=== PATIENT | male | born 1940 | race Caucasian/White ===

== ENCOUNTER 2016-06-20 09:51 | Emergency (ER) | payer MEDICARE ==
[~2016-06-20] VITALS: Ht 180.3 cm; Wt 77.3 kg
--- NOTE | 2016-06-20 10:06 | ED.REPORT ---
HPI-Chest Pain 40 and Over Date of Service June 20, 2016 ED Provider: Renan Mahan DO 76 year old male anticoagulated on warfarin and history of NSTEMI with cardiac stent placement in 1999, lung removal due to cancer, CHF, COPD, paroxysmal atrial fibrillation, and HTN presents to the ER via EMS complaining of substernal chest pain onset just prior to arrival. Pain radiates into his back, and is exacerbated with deep breaths and palpation. Associated symptoms include generalized weakness, worsening chronic cough, shortness of breath, and palpitations. Rapid atrial fibrillation with RVR en route. 500cc fluid, diltiazem, ASA, and NTG administered by medics. History of similar in the past. Patient is a difficult historian. He is on 3L O2 at home. reports that the patient was hospitalized three weeks ago at [facility] in [place], [place], at which time he went into rapid atrial fibrillation and had a cardiac catheterization. Nursing Notes Stated Complaint: SHORTNESS OF BREATH,CHEST PAIN Nursing Notes Reviewed: Yes Allergies: Coded Allergies: No Known Allergies (Verified , 05/19/07) Scheduled Arformoterol Tartrate (Brovana) 15 Mcg/2 Ml Vial.neb 15 MCG IH BID Ascorbic Acid (Vitamin C) 1,000 Mg Tab.chew 1,000 MG PO BID Aspirin Chew (Aspirin Chew) 81 Mg Chew 81 MG PO DAILY Atorvastatin (Lipitor) 40 Mg Tablet 40 MG PO HS Budesonide (Pulmicort) 0.25 Mg/2 Ml Nebu 0.25 MG IH DAILY Cholecalciferol (Vitamin D3) (Vitamin D3) 1,000 Unit Tab.chew 2,000 UNIT PO DAILY Cinnamon Bark (Cinnamon) 500 Mg Capsule 500 MG PO DAILY Cyanocobalamin (Vitamin B12) 500 Mcg Tablet 1,000 MCG PO DAILY Folic Acid (Folic Acid) 1 Mg Tablet 1 MG PO DAILY Furosemide (Furosemide) 40 Mg Tablet 40 MG PO DAILY Guaifenesin (Mucinex) 600 Mg Tablet.er 600 MG PO BID Ipratropium/Albuterol Sulfate (Iprat-Albut 0.5-3(2.5) mg/3 mL Inhalant Soln) 3 Ml Ampul.neb 3 ML IH Q6 Lisinopril (Lisinopril) 10 Mg Tablet 10 MG PO DAILY Metformin (Metformin) 500 Mg Tablet 500 MG PO HS Metoprolol Tartrate (Metoprolol Tartrate) 25 Mg Tablet 12.5 MG PO BID Omeprazole (Omeprazole) 40 Mg Capsule.dr 40 MG PO DAILY Paroxetine (Paroxetine) 40 Mg Tablet 40 MG PO DAILY Potassium Chloride ER (Klor-Con M20) 20 Meq Tablet 20 MEQ PO DAILY Warfarin Sodium (Coumadin) 5 Mg Tablet 5 MG PO DAILY Scheduled PRN Acetaminophen (Acetaminophen) 325 Mg Tablet 325 MG PO Q6H PRN PRN For Pain Albuterol Neb Soln (Albuterol Neb Soln) 2.5 Mg/3 Ml Vial.neb 2.5 MG INHALATION Q4H PRN PRN For Wheezing Hydrocodone-Acetaminophen 5-325 mg (Hydrocodone-Acetaminophen 5-325 mg) 1 Each Tablet 1 TABLET PO Q6H PRN PRN For Pain Nitroglycerin SL (Nitroglycerin SL) 0.4 Mg Tab.subl 0.4 MG SL Q5MIN PRN PRN For Chest Pain Trazodone (Trazodone) 50 Mg Tablet 100 MG PO HS PRN PRN Insomnia General Time Seen by MD: 10:06 Chief Complaint Chest pain Hx Obtained From: Patient Arrived By: Ambulance Sudden in Onset?: No Onset Occurred: Just prior to arrival Symptom Duration: Since onset Location: : Substernal Quality: Painful Radiation: : Back Severity: Current: Moderate Severity: Maximum: Moderate Associated with: Reports: Cough, non-productive, Shortness of Breath, Weakness Exacerbated by: Deep breath, Palpation of chest Pertinent Negative: Relieved by nothing Context Related History: Reports: Congestive heart failure, Diabetes mellitus, Hypertension, Myocardial infarction Similar Sx Previous: Yes Past Medical History Past Medical History NSTEMI Anemia Reports: COPD, Cancer (Lung), Congestive heart failure, Coronary artery disease , Diabetes mellitus, Hypertension Reports: Atrial fibrillation (paroxysmal), Depression Past Surgical History Lobectomy Cardiac stent placement Reports: Appendectomy Smoking History Current Every Day Smoker Review of Systems Constitutional: Reports: Weakness - generalized Respiratory: Reports: Non-productive cough, Shortness of breath Cardiovascular: Reports: Chest pain, Palpitations GI: Denies: Nausea, Vomiting Musculoskeletal: Reports: Back pain, Denies: Extremity pain, Neck pain Skin: Denies Diaphoresis Neurologic: Denies: Headache Complete sys rev & neg: except as marked. Physical Exam Initial Vital Signs Vital Signs (First) Date Time Temp Pulse Resp B/P Pulse Ox O2 Delivery O2 Flow Rate FiO2 06/20/16 10:17 36.9 75 24 101/58 93 Nasal Cannula 3 Initial VS: Reviewed Head / Eyes: Atraumatic, Normocephalic Neck: Supple, Non-tender, Full range of motion Extremities: Vascular intact, Neuro intact, No swelling, No tenderness Skin: Warm, Dry, No cyanosis Neurologic: Alert, Oriented, Nonfocal General/Constitutional: Awake, Alert, Well developed Disheveled, smells of cigarettes. Respiratory / Chest: No rales, No rhonchi, No wheezing Diminished Breath Sounds: Positive: Decreased bilateral Cardiovascular: Heart rate NL, Regular rhythm, Heart sounds NL, Peripheral circulation NL, Pulses = bilaterally, No gross BP differential Heart Sounds / Murmur: Positive: Systolic murmur present.. (at apex) Abdomen: Soft, Non-tender, No guarding, No rebound, No distention Interpretation & Diagnostics Lab Results Interpretation Result Diagram: 06/20/16 1030 06/20/16 1030 Test 06/20/16 10:30 White Blood Count 6.5th/mm3 (3.8-10.1) Red Blood Count 3.53mil/mm3 (4.40-5.80) Hemoglobin 9.4g/dL (13.8-17.2) Hematocrit 29.8% (41.0-50.0) Mean Corpuscular Volume 84.4fL (81-100) Mean Corpuscular Hemoglobin 26.6pg (27.0-35.0) Mean Corpuscular Hemoglobin Concent 31.5% (32.0-37.0) Red Cell Distribution Width 17.1% (12.3-15.4) Platelet Count 405bil/L (150-400) Neutrophils (%) (Auto) 73.1% (40-74) Lymphocytes (%) (Auto) 6.3% (14-46) Monocytes (%) (Auto) 17.0% (4-12) Eosinophils (%) (Auto) 2.8% (0-5) Basophils (%) (Auto) 0.6% (0-3) Prothrombin Time 38.6sec (8.1-12.5) Prothromb Time International Ratio 3.52ratio Sodium Level 141mEq/L (134-144) Potassium Level 4.2mEq/L (3.5-5.2) Chloride Level 101mEq/L (97-108) Carbon Dioxide Level 23mmol/L (18-29) Blood Urea Nitrogen 28mg/dL (8-27) Creatinine 0.76mg/dL (0.76-1.27) Estimat Glomerular Filtration Rate 105mL/min (>59) Glucose Level 163mg/dL (60-99) Calcium Level 9.2mg/dL (8.5-10.1) Magnesium Level 1.7mg/dL (1.6-2.6) Total Bilirubin 0.2mg/dL (0.0-1.2) Aspartate Amino Transf (AST/SGOT) 15U/L (0-50) Alanine Aminotransferase (ALT/SGPT) 11U/L (0-44) Alkaline Phosphatase 63U/L (25-160) Troponin T 0.024ug/L (0.0-0.011) Pro-B-Type Natriuretic Peptide 1592pg/mL (0-486) Total Protein 6.9g/dL (6.4-8.4) Albumin 3.4g/dL (3.4-5.0) Hold Sanderson Top Tube Received (Received) ECG Interpretation ECG Interpretation: Sinus rhythm, rate 68 LBBB No ischemic changes Unchanged from 05/19/2007 Time: 10:27 Interpreted by: ED physician X-Ray Chest Interpretation Chest Xray Interpretation: IMPRESSION: 1. Reticulonodular interstitial prominence probably is related to pulmonary edema. Atypical pneumonia is difficult to exclude. 2. Trace bilateral effusions. 3. Postoperative changes overlying the left superior chest. No pneumothorax. Dictated by: Duarte Ambrose M.D. on 06/20/2016 at 9:41 Approved by: Duarte Ambrose M.D. on 06/20/2016 at 9:44 View: Portable, 1 view Interpretation / Wet Read by: Interpret - Radiologist Re-Eval/Medical Decision Med Decision/Clinical Course Patient arrives actually in sinus rhythm but prehospital EKG was reviewed and he was in rapid atrial fibrillation, which was resolved after Cardizem given IV by paramedics. Patient has been mildly hypotensive in the 90s and as low as the 80s in the ER. He has a prerenal pattern in his lab work. His troponin is also mildly elevated. Given the low blood pressure antecedent chest pain, the general constellation of weakness in the last few days, and the abnormal troponin and this patient should be admitted and observed with serial troponins, blood pressure monitoring and possibly repeat echocardiogram at the discretion of cardiology. When I offered this to the patient, he vigorously requested transfer to [facility] where his ongoing medical care and cardiac care occurs. He was graciously accepted by both cardiology and the hospitalist. He will be transferred. Source of Hx: Old records Time of Eval: 10:52 Re-Evaluation/Progress Note: Patient's symptoms are nearly resolved. Updated him on the plan of care. Time of Eval: 11:04 Re-Evaluation/Progress Note: Patient's is now present, at bedside. Updated her on the plan of care. Time of Eval: 11:44 Re-Evaluation/Progress Note: reports decreased appetite recently, but he has had adequate fluid intake. Time of Eval: 12:19 Re-Evaluation/Progress Note: Discussed lab and imaging results and need for admission. Patient is amenable to the plan, but requests admission at [facility] in [place], [place]. Return precautions given. All other questions addressed. Consultation #1: Referral / Consult Name: Chung Singer MD Consulted With: Cardiology Call Returned at: 12:19 Note: Discussed patient case with Dr. Singer, Cardiology at [facility] in [place], [place]. He will try to arrange transfer. Consultation #2: Referral / Consult Name: Catarino Yates MD Consulted With: Hospitalist ([facility]) Call Returned at: 12:40 Note: Does not accept transfer at this time. Consultation #3: Referral / Consult Name: Catarino Yates MD Consulted With: Hospitalist Call Returned at: 12:46 Research Laboratory Technician: Agrees with eval, Agrees with plan Note: Dr. Yates accepts transfer. Counseled Regarding: Diagnosis, Lab results, Need for transfer Discharge & Departure Primary Impression: Atrial fibrillation with RVR Additional Impressions: Angina pectoris Hypotension Elevated troponin Disposition: Transfer, Acute Care Facility Receiving Hospital: [place], [place] Transfer Accepted: Yes Transfer Accepted at: 12:48 Transfer Reason: Patient request Spoke with: Hospitalist (Dr. Yates), Specialty physician (Dr. Singer, Cardiology) Patient Status: Stable Patient Informed: Yes Discharge Condition All VS Reviewed: Yes Condition: Stable Referrals: Gerald Clark MD (PCP) Loki Attestation Portions of this note were transcribed by Shravan Houser. I, Dr. Mahan, personally performed the history, physical exam and medical decision-making; I reviewed and confirmed the accuracy of the information in the transcribed note. Signed by: Loki Fishman, 06/20/2016 and 12:48 copies to: Gerald Clark MD, Timothy S DO June 20, 2016 10:06 SHRAVAN HOUSER June 20, 2016 10:14
[2016-06-20] MEDS ORDERED: Ondansetron 2 mg/mL 2 mL Inj IVPUSH PRN (10:15)
[2016-06-20 10:17] VITALS: BP 101/58; PULSE 75; RESP 24; O2SAT 93
--- NOTE | 2016-06-20 10:46 | DRSVH ---
PROCEDURE: X-RAY CHEST ONE VIEW, PORTABLE ([id number]) INDICATIONS: CP TECHNIQUE: One view of the chest was acquired. COMPARISON: [facility], CR, CHEST 2VW, 05/23/2007, 10:25. FINDINGS: Surgical changes and devices: Postoperative changes are seen overlying the left superior thorax. Lungs and pleura: There is elevation of the left diaphragm. Blunting of the costophrenic angles is p resent bilaterally. No pneumothorax is evident. Reticulonodular interstitial prominence is seen dif fusely. No lobar consolidation is evident. Mediastinum: Mediastinal contours appear normal. Heart size is normal. Bones and chest wall: No suspicious bony lesions. Overlying soft tissues appear unremarkable. IMPRESSION: 1. Reticulonodular interstitial prominence probably is related to pulmonary edema. Atypical pneumon ia is difficult to exclude. 2. Trace bilateral effusions. 3. Postoperative changes overlying the left superior chest. No pneumothorax. Dictated by: Duarte Ambrose M.D. on 06/20/2016 at 9:41 Approved by: Duarte Ambrose M.D. on 06/20/2016 at 9:44
[2016-06-20 10:47] LABS: BASOPHILS % (AUTO) 0.6 % (0-3); EOSINOPHILS % (AUTO) 2.8 % (0-5); Mean Corpuscular Hemoglobin 26.6 pg (27.0-35.0); Mean Corpuscular Volume 84.4 fL (81-100); NEUTROPHILS % (AUTO) 73.1 % (40-74); Platelet Count 405 bil/L (150-400)
[2016-06-20 11:30] VITALS: BP 94/53; PULSE 61; RESP 16; O2SAT 100
[2016-06-20 11:40] LABS: TROPONIN T 0.024 ug/L (0.0-0.011)
[2016-06-20] MEDS ORDERED: 0.9% Sodium Chloride 500 ML IV ONE (11:50)
[2016-06-20 11:51] LABS: Magnesium 1.7 mg/dL (1.6-2.6)
[2016-06-20 12:10] LABS: INR 3.52 ratio
[2016-06-20] MEDS ORDERED: CYAN500 PO (12:35)
[2016-06-20] MEDS ORDERED: ALBU2.5V4 INHALATION (12:35)
[2016-06-20] MEDS ORDERED: NITR0.4T6 SL (12:35)
[2016-06-20] MEDS ORDERED: ACET325T51 PO (12:35)
[2016-06-20] MEDS ORDERED: ARFO15VI2 IH (12:35)
[2016-06-20] MEDS ORDERED: LIP40 PO (12:35)
[2016-06-20] MEDS ORDERED: POTA20TA7 PO (12:35)
[2016-06-20] MEDS ORDERED: PULM.25NEB IH (12:35)
[2016-06-20] MEDS ORDERED: LISI10TA PO (12:35)
[2016-06-20] MEDS ORDERED: WARF5TAB PO (12:35)
[2016-06-20] MEDS ORDERED: IPRA3AMP IH (12:35)
[2016-06-20] MEDS ORDERED: PARO40TA3 PO (12:35)
[2016-06-20] MEDS ORDERED: METO25TA6 PO (12:35)
[2016-06-20] MEDS ORDERED: METF500T4 PO (12:35)
[2016-06-20] MEDS ORDERED: GUAI600T2 PO (12:35)
[2016-06-20] MEDS ORDERED: CHOL10008 PO (12:35)
[2016-06-20] MEDS ORDERED: FOLI1TAB18 PO (12:35)
[2016-06-20] MEDS ORDERED: CINN500C14 PO (12:35)
[2016-06-20] MEDS ORDERED: HYDR-4003 PO (12:35)
[2016-06-20] MEDS ORDERED: FURO40TA4 PO (12:35)
[2016-06-20] MEDS ORDERED: TRAZ-115 PO (12:35)
[2016-06-20] MEDS ORDERED: ASCO100089 PO (12:35)
[2016-06-20] MEDS ORDERED: OMEP40CA36 PO (12:35)
[2016-06-20] MEDS ORDERED: ASPI81TA3 PO (12:35)
[2016-06-20 13:34] VITALS: BP 98/51; PULSE 58; RESP 23; O2SAT 100
== END 2016-06-20 13:48 | disposition short-term general hospital (02) ==
LOC: SED 09:51 → EDBD 09:51 → SED 13:48
DX: I48.91 Unspecified atrial fibrillation (principal); I20.9 Angina pectoris, unspecified; I95.9 Hypotension, unspecified; R79.89 Other specified abnormal findings of blood chemistry; I25.2 Old myocardial infarction; I11.0 Hypertensive heart disease with heart failure; I50.9 Heart failure, unspecified; E11.9 Type 2 diabetes mellitus without complications; F17.200 Nicotine dependence, unspecified, uncomplicated; Z79.01 Long term (current) use of anticoagulants; Z79.82 Long term (current) use of aspirin; Z79.84 Long term (current) use of oral hypoglycemic drugs; Z79.899 Other long term (current) drug therapy
CPT/HCPCS: 36415; 71010; 80053; 82948; 83735; 83880; 84484; 85025; 85610; 93005; 96360; 99285; J7040

== ENCOUNTER 2016-07-28 01:28 | Emergency (ER) | payer MEDICARE ==
[~2016-07-28] VITALS: Ht 180.3 cm; Wt 79.5 kg
[~2016-07-28 01:28] MED LIST: ACET325T51 PO; ALBU2.5V4 INHALATION; ARFO15VI2 IH; ASCO100089 PO; ASPI81TA3 PO; CHOL10008 PO; CINN500C14 PO; CYAN500 PO; FOLI1TAB18 PO; FURO40TA4 PO; GUAI600T2 PO; HYDR-4003 PO; IPRA3AMP IH; LIP40 PO; LISI10TA PO; METF500T4 PO; METO25TA6 PO; NITR0.4T6 SL; OMEP40CA36 PO; PARO40TA3 PO; POTA20TA7 PO; PULM.25NEB IH; TRAZ-115 PO; WARF5TAB PO
--- NOTE | 2016-07-28 01:34 | ED.REPORT ---
HPI-General Illness Date of Service Jul 28, 2016 ED Provider: Camilo Man MD Pt is a 76 year old male with a history of A-fib, pacemaker insertion, CHF, DM, and HTN who presents to the ED via EMS complaining of SOB onset prior to arrival. He denies chest pain,nausea, vomiting, and fever. He recently had a pacemaker insertion. The pt was in bed when his SOB started, prompting him to take a nebulizer and call the EMS. Upon EMS arrival, his SpO2 was in the 80s. Per EMS, the pt was cyanotic. He was placed on high flow O2, increasing SpO2 to the 90s. He has had persistent and worsening leg edema. Nursing Notes Stated Complaint: CHEST PAIN Chief Complaint: Chest Pain Nursing Notes Reviewed: Yes Allergies: Coded Allergies: No Known Allergies (Verified , 05/19/07) Scheduled Arformoterol Tartrate (Brovana) 15 Mcg/2 Ml Vial.neb 15 MCG IH BID Ascorbic Acid (Vitamin C) 1,000 Mg Tab.chew 1,000 MG PO BID Aspirin Chew (Aspirin Chew) 81 Mg Chew 81 MG PO DAILY Atorvastatin (Lipitor) 40 Mg Tablet 40 MG PO HS Budesonide (Pulmicort) 0.25 Mg/2 Ml Nebu 0.25 MG IH DAILY Cholecalciferol (Vitamin D3) (Vitamin D3) 1,000 Unit Tab.chew 2,000 UNIT PO DAILY Cinnamon Bark (Cinnamon) 500 Mg Capsule 500 MG PO DAILY Cyanocobalamin (Vitamin B12) 500 Mcg Tablet 1,000 MCG PO DAILY Folic Acid (Folic Acid) 1 Mg Tablet 1 MG PO DAILY Furosemide (Furosemide) 40 Mg Tablet 40 MG PO DAILY Guaifenesin (Mucinex) 600 Mg Tablet.er 600 MG PO BID Ipratropium/Albuterol Sulfate (Iprat-Albut 0.5-3(2.5) mg/3 mL Inhalant Soln) 3 Ml Ampul.neb 3 ML IH Q6 Lisinopril (Lisinopril) 10 Mg Tablet 10 MG PO DAILY Metformin (Metformin) 500 Mg Tablet 500 MG PO HS Metoprolol Tartrate (Metoprolol Tartrate) 25 Mg Tablet 12.5 MG PO BID Omeprazole (Omeprazole) 40 Mg Capsule.dr 40 MG PO DAILY Paroxetine (Paroxetine) 40 Mg Tablet 40 MG PO DAILY Potassium Chloride ER (Klor-Con M20) 20 Meq Tablet 20 MEQ PO DAILY Warfarin Sodium (Coumadin) 5 Mg Tablet 5 MG PO DAILY Scheduled PRN Acetaminophen (Acetaminophen) 325 Mg Tablet 325 MG PO Q6H PRN PRN For Pain Albuterol Neb Soln (Albuterol Neb Soln) 2.5 Mg/3 Ml Vial.neb 2.5 MG INHALATION Q4H PRN PRN For Wheezing Hydrocodone-Acetaminophen 5-325 mg (Hydrocodone-Acetaminophen 5-325 mg) 1 Each Tablet 1 TABLET PO Q6H PRN PRN For Pain Nitroglycerin SL (Nitroglycerin SL) 0.4 Mg Tab.subl 0.4 MG SL Q5MIN PRN PRN For Chest Pain Trazodone (Trazodone) 50 Mg Tablet 100 MG PO HS PRN PRN Insomnia General Time Seen by MD: 01:31 Chief Complaint Other (Shortness of Breath) Past Medical History Past Medical History NSTEMI Anemia Reports: COPD, Cancer, Congestive heart failure, Coronary artery disease, Diabetes mellitus, Hypertension Reports: Atrial fibrillation, Depression Past Surgical History Lobectomy for non-small cell carcinoma of the lung Cardiac stent placement Reports: Appendectomy Smoking History Current Every Day Smoker Review of Systems Full Review of Systems Constitutional: Denies: Fever Respiratory: Reports: Shortness of breath, Denies: Non-productive cough GI: Denies: Nausea, Vomiting Physical Exam Vital Signs Vital Signs Date Time Temp Pulse Resp B/P Pulse Ox O2 Delivery O2 Flow Rate FiO2 07/28/16 03:49 36.8 62 34 89/57 99 Room Air 07/28/16 03:17 60 23 85/52 100 Nasal Cannula 3 07/28/16 02:36 64 24 85/52 96 Nasal Cannula 5 07/28/16 01:41 36.6 60 14 105/61 98 Nasal Cannula 5 Initial VS: Reviewed Head / Eyes: Atraumatic, Normocephalic, PERRL ENT: Mucous membranes moist, Conjunctiva normal, No scleral icterus Neck: Supple, Full range of motion Abdomen / GI: Soft, Non-tender Neurologic: Alert, Oriented, Nonfocal Psychiatric: Mood/affect normal, Behavior normal General/Constitutional: Awake, Alert, Cooperative, Not toxic appearing Respiratory / Chest: Atraumatic Tachypneic Crackles to axilla Cardiovascular: Heart rate NL, Regular rhythm Heart Sounds / Murmur: Positive: Systolic murmur present.. (III/) Lower Extremity / Pelvis / MS: Neurologic intact, Vascular intact 2/6 peripheral edema Skin: Atraumatic, Warm, Intact Diaphoretic, but drying Interpretation & Diagnostics Lab Results Interpretation Result Diagram: 07/28/16 0155 07/28/16 0155 Test 07/28/16 01:55 07/28/16 02:28 White Blood Count 9.7th/mm3 (3.8-10.1) Red Blood Count 3.71mil/mm3 (4.40-5.80) Hemoglobin 10.2g/dL (13.8-17.2) Hematocrit 32.5% (41.0-50.0) Mean Corpuscular Volume 87.6fL (81-100) Mean Corpuscular Hemoglobin 27.5pg (27.0-35.0) Mean Corpuscular Hemoglobin Concent 31.4% (32.0-37.0) Red Cell Distribution Width 17.0% (12.3-15.4) Platelet Count 100bil/L (150-400) Neutrophils (%) (Auto) 66.9% (40-74) Lymphocytes (%) (Auto) 14.2% (14-46) Monocytes (%) (Auto) 15.6% (4-12) Eosinophils (%) (Auto) 2.7% (0-5) Basophils (%) (Auto) 0.3% (0-3) Sodium Level 140mEq/L (134-144) Potassium Level 4.2mEq/L (3.5-5.2) Chloride Level 101mEq/L (97-108) Carbon Dioxide Level 18mmol/L (18-29) Blood Urea Nitrogen 16mg/dL (8-27) Creatinine 0.77mg/dL (0.76-1.27) Estimat Glomerular Filtration Rate 104mL/min (>59) Glucose Level 225mg/dL (60-99) Calcium Level 9.3mg/dL (8.5-10.1) Magnesium Level 1.8mg/dL (1.6-2.6) Total Bilirubin 0.3mg/dL (0.0-1.2) Aspartate Amino Transf (AST/SGOT) 20U/L (0-50) Alanine Aminotransferase (ALT/SGPT) 11U/L (0-44) Alkaline Phosphatase 91U/L (25-160) Troponin T < 0.010ug/L (0.0-0.011) Pro-B-Type Natriuretic Peptide 6497pg/mL (0-486) Total Protein 7.8g/dL (6.4-8.4) Albumin 3.7g/dL (3.4-5.0) Prothrombin Time 14.8sec (8.1-12.5) Prothromb Time International Ratio 1.37ratio Activated Partial Thromboplast Time 37.6sec (22.8-33.0) Hold Sanderson Top Tube Received (Received) ECG Interpretation ECG Interpretation: Pacemaker spikes or artifacts with a rate of 72 Sinus or ectopic atrial rhythm Atrial premature complex Nonspecific IVCD with LAD Abnormal T, consider ischemia, lateral leads No significant changes compared to 06/20/16 Time: 01:34 Interpreted by: ED physician X-Ray Chest Interpretation Chest Xray Interpretation: Fluid present, lost left upper lobe, volume shift, CHF Interpretation / Wet Read by: Wet read ED physician Re-Eval/Medical Decision Med Decision/Clinical Course 76-year-old presents with significant shortness of breath, fairly rapid in onset although on background of worsening respiratory performance. He is in overt congestive heart failure with pulmonary edema on x-ray, markedly elevated pro-B natruretic peptide, and remarkably, a normal troponin. He was an extremist and quite cyanotic in the field, and still diaphoretic and in some distress on arrival, although clearing. He received Lasix in two aliquots of 50 mg, with some diuresis and improvement. Blood pressure has limited application of nitroglycerin or other additional agents. He and are requesting transfer to [facility], where his usual care is. He was diverted here rather than to [facility], because his pacemaker EKG appeared to be a possible STEMI to the ambulance medic. On arrival, they expressed their desire to be admitted at [facility]. Source of Hx: Old records Time of Eval: 02:29 Re-Evaluation/Progress Note: Pt rechecked. Pt informed of lab results. All questions were answered. Time of Eval: 03:03 Patient Status: Moderate relief Re-Evaluation/Progress Note: Pt rechecked. Informed pt of plan for admission. Pt understands and agrees with plan for admission. All questions addressed. Consultation : Consulted With: Hospitalist Call Returned at: 02:29 Chief Psychology: Will see patient, Agrees with eval, Agrees with plan, Accepts admit Counseled Regarding: Diagnosis, Lab results, Need for admission Discharge & Departure Primary Impression: CHF (congestive heart failure) Congestive heart failure type: unspecified congestive heart failure type Congestive heart failure chronicity: unspecified congestive heart failure chronicity Qualified Code: I50.9 - Heart failure, unspecified Additional Impression: Hypotension Hypotension type: unspecified hypotension type Qualified Code: I95.9 - Hypotension, unspecified Disposition: Transfer, Acute Care Facility ([facility]) Discharge Condition All VS Reviewed: Yes Condition: Stable Referrals: Gerald Clark MD (PCP) Crit Care Except Billable Proc Time Spent: 30-74 minutes Services Performed: Patient management by me, Time spent at bedside, Reviewing test results, Reviewing imaging, Discussing patient care, Documentation in record, Time with fam/surrogate Scribe Attestation Portions of this note were transcribed by Herminia Cordova. I, Dr. Man personally performed the history, physical exam and medical decision-making; I reviewed and confirmed the accuracy of the information in the transcribed note. Signed by: Loki Lizarraga, 07/28/16 and 03:40 copies to: Gerald Clark MD, Christopher W MD Jul 28, 2016 01:34 Herminia Menard Jul 28, 2016 01:41
[2016-07-28 01:41] VITALS: BP 105/61; PULSE 60; RESP 14; O2SAT 98
[2016-07-28 02:07] LABS: BASOPHILS % (AUTO) 0.3 % (0-3); EOSINOPHILS % (AUTO) 2.7 % (0-5); MONOCYTES % (AUTO) 15.6 % (4-12); Mean Corpuscular Hemoglobin 27.5 pg (27.0-35.0); Mean Corpuscular Volume 87.6 fL (81-100); NEUTROPHILS % (AUTO) 66.9 % (40-74); Platelet Count 100 bil/L (150-400)
[2016-07-28] MEDS ORDERED: Furosemide 10 mg/mL 10 mL Inj IVPUSH ONE (02:25)
[2016-07-28 02:36] VITALS: BP 85/52; PULSE 64; RESP 24; O2SAT 96
[2016-07-28 02:38] LABS: Magnesium 1.8 mg/dL (1.6-2.6)
[2016-07-28 02:39] LABS: TROPONIN T < 0.010 ug/L (0.0-0.011)
[2016-07-28 03:04] LABS: INR 1.37 ratio
[2016-07-28 03:17] VITALS: BP 85/52; PULSE 60; RESP 23; O2SAT 100
[2016-07-28 03:49] VITALS: BP 89/57; PULSE 62; RESP 34; O2SAT 99
--- NOTE | 2016-07-28 12:07 | DRSVH ---
PROCEDURE: X-RAY CHEST ONE VIEW, PORTABLE ([id number]) INDICATIONS: sob TECHNIQUE: One view of the chest was acquired. COMPARISON: [facility], CR, XR CHEST 1VW (PORTABLE), 06/20/2016, 10:06. FINDINGS: Surgical changes and devices: There is a left chest wall triple lead pacemaker. Multiple surgical cl ips are redemonstrated in the superior left hemithorax. Lungs and pleura: There is blunting of the costophrenic angles compatible with small pleural effusio ns. Linear bibasilar opacities are also demonstrated consistent with compressive atelectasis or cons olidation. There is increased pulmonary edema noted. There is asymmetric opacification of the left apex with multiple surgical clips demonstrated Mediastinum: Mediastinal contours appear unchanged. Heart size is borderline enlarged with a left h eart contour is not well-visualized. Bones and chest wall: No suspicious bony lesions. Overlying soft tissues appear unremarkable. IMPRESSION: 1. Increased pulmonary edema with small bilateral pleural effusions and probable mild compressive at electasis in the lung bases. 2. Postsurgical changes with asymmetric left apical pleural thickening. Recommend attention on foll owup. Dictated by: Aleks Sheldon M.D. on 07/28/2016 at 11:57 Approved by: Aleks Sheldon M.D. on 07/28/2016 at 12:00
== END 2016-07-28 03:49 | disposition short-term general hospital (02) ==
LOC: EDBD 01:28 → EDUNIT# 01:28 → SED 01:57
DX: I11.0 Hypertensive heart disease with heart failure (principal); E11.59 Type 2 diabetes mellitus with other circulatory complications; I50.9 Heart failure, unspecified; I25.10 Atherosclerotic heart disease of native coronary artery without angina pectoris; I25.2 Old myocardial infarction; I48.91 Unspecified atrial fibrillation; I95.9 Hypotension, unspecified; F32.9 Major depressive disorder, single episode, unspecified; F17.200 Nicotine dependence, unspecified, uncomplicated; Z95.0 Presence of cardiac pacemaker; Z95.5 Presence of coronary angioplasty implant and graft; Z79.82 Long term (current) use of aspirin; Z79.84 Long term (current) use of oral hypoglycemic drugs; Z79.01 Long term (current) use of anticoagulants
CPT/HCPCS: 36415; 71010; 80053; 83735; 83880; 84484; 85025; 85610; 85730; 93005; 96374; 99291; J1940